=== PATIENT | male | born 1980 | race Caucasian/White ===

== ENCOUNTER 2021-05-30 13:41 | Emergency (ER) | payer OTHER ==
[~2021-05-30] VITALS: Ht 162.6 cm; Wt 50.4 kg
[2021-05-30] MEDS ORDERED: ADDERALL 10 MG10 MG (14:03)
[2021-05-30] MEDS ORDERED: BUSPIRONE HCL5 MG PO (14:03)
[2021-05-30] MEDS ORDERED: NAPROSYN500 MG PO (14:46)
== END 2021-05-30 15:12 | disposition home or self-care (01) ==
LOC: FSED 14:08
DX: S53.401A Unspecified sprain of right elbow, initial encounter (principal); W22.8XXA Striking against or struck by other objects, initial encounter; Y92.008 Other place in unspecified non-institutional (private) residence as the place of occurrence of the external cause; F90.9 Attention-deficit hyperactivity disorder, unspecified type
CPT/HCPCS: 99283